=== PATIENT | male | born 1990 | race Caucasian/White ===

== ENCOUNTER 2023-07-10 11:06 | Emergency (ER) | payer OTHER, SELFPAY ==
--- NOTE | ~2023-07-10 | XR_ITS ---
Left wrist Technique: PA, oblique, lateral, and ulnar deviation views were obtained. Clinical History: Pain Findings: No acute fracture or dislocation is seen. Osseous alignment is anatomic. Joint spaces are p reserved. Soft tissues are unremarkable. Impression: Unremarkable left wrist radiographs. Reviewed, dictated and finalized at location . Impression: Unremarkable left wrist radiographs.
--- NOTE | 2023-07-10 11:22 | ED.EXTPRO ---
HPI - Extremity Problem General Chief complaint: Extremity Problem,Nontraumatic Stated complaint: lt arm x-ray Source: patient Mode of arrival: ambulatory Limitations: no limitations History of Present Illness HPI Narrative: 33-year-old male presented for complaint of left wrist pain after injury 2 days ago. He states while shoveling he felt a pop in has had numbness/tingling to the little finger and endorses some mild swelling to the wrist. Endorses painful range of motion. Denies deformity or bruising. Patient also states about 6 months ago he fell and hurt the wrist but did not have it evaluated at that time. Related Data Home Medications Medication Instructions Recorded Confirmed No Home Medications 07/10/23 07/10/23 Allergies Allergy/AdvReac Type Severity Reaction Status Date / Time Penicillins Allergy Unknown unknown Verified 07/10/23 11:40 Review of Systems Review of Systems: CONSTITUTIONAL: Denies body aches, fever, chills CARDIOVASCULAR: Denies chest pain, palpitations, or edema. RESPIRATORY: Denies cough or dyspnea. SKIN: Denies rash, itching, or wounds. MUSCULOSKELETAL: Reports left wrist pain Denies back pain, neck pain NEUROLOGIC: Denies headache All systems reviewed & are unremarkable except as noted in HPI and below PMFSH Comments At time of signature, I have reviewed and agree with nursing past medical, surgical, social and family history unless otherwise noted. Please see nursing chart for further information. There is no relevant family history pertinent to the presenting complaint Exam Narrative: GENERAL: Well-appearing, well-nourished, and in no acute distress. CHEST: Speaks in full sentences. No respiratory distress. HEART: Regular rate and rhythm. Normal and equal peripheral pulses. EXTREMITIES: Left hand has normal strength and sensation, slightly limited range of motion with flexion/extension/rotation of wrist due to subjective pain with movement. Tenderness with mild swelling to the ulnar aspect. No ecchymosis. No open wounds, or obvious deformity; alignment normal, pulse palpable and equal bilaterally, skin warm, dry, pink. Capillary refill less than 3 seconds. SKIN: Warm, dry, no rash. Extrem: Hand/finger images: 1. area of pain Course Course Emergency Course: Patient is aware of diagnosis, understands and agrees to treatment plan. Anticipatory guidance given. Patient agrees to follow-up as directed and is aware of reasons to seek care at the emergency department. Portions of this record may have been created with voice recognition software Level of Care: Express Care Visit Vital Signs Vital signs: Vital Signs Temperature 99.0 F 07/10/23 11:33 Pulse Rate 85 07/10/23 11:33 Respiratory Rate 16 07/10/23 11:33 Blood Pressure 137/83 07/10/23 11:33 Pulse Oximetry 100 07/10/23 11:33 Oxygen Delivery Room Air 07/10/23 11:33 Temperature 99.0 F 07/10/23 11:33 Pulse Rate 85 07/10/23 11:33 Respiratory Rate 16 07/10/23 11:33 Blood Pressure 137/83 07/10/23 11:33 Pulse Oximetry 100 07/10/23 11:33 Oxygen Delivery Room Air 07/10/23 11:33 Reviewed MDM - Extremity (Nontraumatic) MDM Narrative Medical decision making narrative: Results of x-ray reviewed with patient. DANIAL applied. Discussed physical exam findings. Advised supportive measures and signs/symptoms to go to the ER. Pt is appropriate for outpt treatment and f/u. Differential Diagnosis Differential diagnosis: Likely other (sprain/strain of wrist, Colles' fracture, wrist fracture, hand fracture, finger sprain, dislocation of finger, gout, cellulitis, arthritis, tendonitis) Imaging Data Radiologist's impression: Patient: Olvin Winters : 1990 MR#: [id number] Age: 33 Acct:[id number] Loc: [facility]? ? ADM Date: 07/10/23Attending Dr: Ordering Physician: Loretta Perea APRN Date of Service: 07/10/23 Procedure(s): XR wrist LT min 3V Accession Number(s):
[2023-07-10 11:33] VITALS: BP 137/83; PULSE 85; RESP 16; TEMP 37.2; O2SAT 100
== END 2023-07-10 12:02 | disposition home or self-care (01) ==
PROVIDERS: Emergency Provider Nurse Practitioner Family; PCP Internal Medicine
DX: S63.502A Unspecified sprain of left wrist, initial encounter (principal); Y93.H1 Activity, digging, shoveling and raking; X50.3XXA Overexertion from repetitive movements, initial encounter
CPT/HCPCS: 73110; 99213; G0463